=== PATIENT | male | born 1945 | race Caucasian/White ===

== ENCOUNTER → 2020-08-21 14:23 | Outpatient (BNVA) | payer MEDICARE, SELFPAY | PROVIDERS: PCP Internal Medicine; Visit Provider Surgery | DX: K64.5 Perianal venous thrombosis (principal); E78.5 Hyperlipidemia, unspecified; F17.290 Nicotine dependence, other tobacco product, uncomplicated; Z86.73 Personal history of transient ischemic attack (TIA), and cerebral infarction without residual deficits | CPT/HCPCS: 99202 ==

== ENCOUNTER → 2020-08-29 09:18 | Outpatient (BNVA) | payer MEDICARE, SELFPAY | PROVIDERS: PCP Internal Medicine; Referring Provider Internal Medicine; Visit Provider Surgery | DX: K64.5 Perianal venous thrombosis (principal) | CPT/HCPCS: 99212 ==

== ENCOUNTER → 2021-03-26 09:05 | Outpatient (REF) | payer MEDICARE, SELFPAY ==
--- NOTE | 2021-03-26 09:15 | ECG_ITS ---
Test Reason : MENISCUS TEAR Blood Pressure : / mmHG Vent. Rate : 071 BPM Atrial Rate : 071 BPM P-R Int : 138 ms QRS Dur : 090 ms QT Int : 374 ms P-R-T Axes : 033 018 023 degrees QTc Int : 406 ms Normal sinus rhythm Normal ECG When compared with ECG of 31-OCT-2007 13:04, No significant change was found Referred By: Ray Hardy Electronically Signed By:MELQUIADES CARRINGTON MD
[2021-03-26 09:39] LABS: MANUAL DIFF FLAG NO
[2021-03-26 09:56] LABS: Basophils Absolute Auto 0.1 X10*3/uL (0.0-0.2); Basophils Percent Auto 0.8 % (0-2); Eosinophils Absolute Auto 0.3 X10*3/uL (0.0-0.4); Eosinophils Percent Auto 3.5 % (0-4); Hematocrit 39.1 % (42-52); Hemoglobin 13.4 g/dl (14.0-18.0); Imm Gran Abs Auto 0.06 X10*3/uL (0.00-0.03); Imm Gran Pct Auto 0.8 % (0.0-0.4); Lymphocytes Absolute Auto 2.3 X10*3/uL (1.2-4.9); Lymphocytes Percent Auto 29.3 % (20-40); Mean Corpuscular HGB Conc 34.3 g/dl (31.0-36.0); Mean Corpuscular Hemoglobin 32.4 pg (27.0-33.0); Mean Corpuscular Volume 94.7 fL (80-98); Mean Platelet Volume 10.6 fL (9.4-12.4); Monocytes Absolute Auto 0.6 X10*3/uL (0.1-1.2); Neutrophils Absolute Auto 4.5 X10*3/uL (2.0-8.3); Neutrophils Percent Auto 57.6 % (45-73); Platelet Count 202 X10*3/uL (160-400); Red Blood Count 4.13 X10*6/uL (4.60-5.80); Red Cell Distribution Width 12.6 % (11.0-16.0); White Blood Count 7.8 X10*3/uL (4.8-10.8)
[2021-03-26 10:25] LABS: Alanine Aminotransferase 21 U/L (0-40); Albumin Level 4.3 g/dL (3.5-5.0); Alkaline Phosphatase 75 U/L (39-117); Anion Gap 12 (12-20); Aspartate Amino Transferase 21 U/L (5-37); Bilirubin Total 0.6 mg/dL (0.0-1.0); Blood Urea Nitrogen 16 mg/dL (9-16); Calcium 9.5 mg/dL (8.4-10.2); Carbon Dioxide 26 mmol/L (22-29); Chloride 106 mmol/L (96-108); Estimated Glomerular Filt Rate > 60; Glucose Random 94 mg/dL (60-115); Potassium 4.4 mmol/L (3.3-5.1); Sodium 140 mmol/L (135-145); Total Protein 6.7 g/dL (6.5-8.0)
== END ==
LOC: HO.CARD 09:05
PROVIDERS: PCP Internal Medicine; Visit Provider Internal Medicine
DX: S83.242A Other tear of medial meniscus, current injury, left knee, initial encounter (principal); E78.00 Pure hypercholesterolemia, unspecified; G40.909 Epilepsy, unspecified, not intractable, without status epilepticus
CPT/HCPCS: 36415; 80053; 85025; 93005

== ENCOUNTER 2022-06-02 09:23 | Day surgery (SDC) | payer MEDICARE, SELFPAY ==
--- NOTE | 2022-05-29 12:14 | HO.ANESPROP2 ---
Documented by User: Nena Borrego NP 05/29/22 12:14 HPI - Anesthesia Eval Consult details Narrative: 77yo M for Upper Endoscopy PMFSH Active Problems Active Problems: All Active Problems (Updated 08/21/20 @ 14:53 by Immanuel Mills MD) Thrombosed hemorrhoids (Acute) Hyperlipidemia (Acute) History of TIA (transient ischemic attack) (Acute) Past Medical History Medical History Acute arthritis History of TIA (transient ischemic attack) Hyperlipidemia Insomnia Prostate CA Seizure disorder Thrombosed hemorrhoids Family History Family History Mother History of breast cancer Father History of brain cancer Surgical History Surgical History H/O eye surgery History of hernia repair History of total left knee replacement Social History Social History Alcohol intake: current Alcohol type: wine Patient Tobacco Use Status: Current someday Tobacco user Tobacco use type: Cigar Use of substances other than those prescribed or required for medical reasons: No Are you DNR?: No Advance Directives: No Advance Directives Information Provided: Yes Meds Allergies Allergy/AdvReac Type Severity Reaction Status Date / Time No Known Allergies Allergy Verified 08/21/20 14:32 [No Known Allergies*] Home Medications Medication Instructions Recorded Confirmed Last Taken Type atorvastatin 20 mg tablet 20 mg PO DAILY 08/21/20 Unknown History levetiracetam 250 mg tablet 250 mg PO BID 08/21/20 Unknown History mirtazapine 7.5 mg tablet 7.5 mg PO BEDTIME 08/21/20 Unknown History temazepam 30 mg capsule 30 mg PO BEDTIME PRN 08/21/20 Unknown History tramadol 50 mg tablet 50 mg PO Q4-6H PRN 08/21/20 Unknown History Exam Exam Date and Time: May 29, 2022 1214 Assessment and Plan Assessment Anesthesia Assessment: Chart Reviewed Documented by User: Enid Clarke MD 06/02/22 10:39 PMFSH Active Problems Active Problems: All Active Problems (Updated 08/21/20 @ 14:53 by Immanuel Mills MD) Thrombosed hemorrhoids (Acute) Hyperlipidemia (Acute) History of TIA (transient ischemic attack) (Acute)- balance problems and some facial numbness Abnormality on CTscan. For EGD Past Medical History Medical History Acute arthritis History of TIA (transient ischemic attack) Hyperlipidemia Insomnia Prostate CA Seizure disorder Thrombosed hemorrhoids Family History Family History Mother History of breast cancer Father History of brain cancer Family history of problems with anesthesia: No Surgical History Surgical History H/O eye surgery History of hernia repair History of total left knee replacement History of Problems with Anesthesia: No Social History Social History Alcohol intake: current Alcohol type: wine Patient Tobacco Use Status: Current someday Tobacco user Tobacco use type: Cigar Use of substances other than those prescribed or required for medical reasons: No Are you DNR?: No Advance Directives: No Advance Directives Information Provided: Yes Meds Allergies Allergy/AdvReac Type Severity Reaction Status Date / Time No Known Allergies Allergy Verified 08/21/20 14:32 [No Known Allergies*] Home Medications Medication Instructions Recorded Confirmed Last Taken Type atorvastatin 20 mg tablet 20 mg PO DAILY 08/21/20 Unknown History levetiracetam 250 mg tablet 250 mg PO BID 08/21/20 Unknown History mirtazapine 7.5 mg tablet 7.5 mg PO BEDTIME 08/21/20 Unknown History temazepam 30 mg capsule 30 mg PO BEDTIME PRN 08/21/20 Unknown History tramadol 50 mg tablet 50 mg PO Q4-6H PRN 08/21/20 Unknown History Exam Height,Weight and Vital Signs: Height 5 ft 5 in Weight 68.039 kg Vital Signs Temp Pulse Resp BP Pulse Ox O2 Del Method 06/02/22 10:04 98.2 F 75 16 126/79 96 Room Air Airway Mallampati Class: II TM Dist: >3cm Neck ROM: Full Loose/Missing/Broken Teeth: Yes (Many missing bottom. No loose) Heart: RRR ?murmur Lungs: CTAB Assessment and Plan Assessment Anesthesia Assessment: Anesthesia Plan Discussed Final Anesthetic Review Family History of Problems with Anesthesia: No History of Problems with Anesthesia: No NPO: Yes ASA Class: III Final Preanesthetic Review: No Changes in Pt Med Stat, Meds/Allgs Chart Reviewed, Consent Obtained/Reviewed and Anes Risks/Benef Reviewed Patient Risk: Intermediate Procedure Risk: Low Assessment/Block/Sedation in SS: Assess/Block/Sedation-SS Anesthetic Plan Anesthetic Plan: MAC: Disposition: Standard PACU
[2022-06-02 09:35] VITALS: BMI 25.0
[2022-06-02 10:04] VITALS: BP 126/79; PULSE 75; RESP 16; TEMP 36.8; O2SAT 96
[2022-06-02] MEDS: Lactated Ringers 1,000 ML 100 ML IVCONT (10:15)
--- NOTE | 2022-06-02 11:00 | MHC.SHP ---
Pre-Procedural Eval Section A Date of Service: 06/02/22 The patient is an INPATIENT: No Changes since office visit: No Cold of Flu in the past 2 weeks, No New Medical Problems, No Changes in Medication and No Patient answered all questions The History & Physical has been completed within 30 days and I have reviewed it.: Yes Section B Chief Complaint: Abnormal findings on diagnostic imaging of other p Allergies: Allergies Allergy/AdvReac Type Severity Reaction Status Date / Time No Known Allergies Allergy Verified 08/21/20 14:32 [No Known Allergies*] Plan I have reviewed the history and physical and performed a pertinent physical examination on my patient. No changes have occurred unless specified.
[2022-06-02 11:24] VITALS: BP 115/74; PULSE 88; RESP 16; TEMP 36.4; O2SAT 98
--- NOTE | 2022-06-02 11:28 | PM.OP ---
Brief Operative Note Date of Service: 06/02/22 Pre-op diagnosis: abnl ct duodenum Post-op diagnosis: same Procedure: egd Surgeon: eDnis Giles Anesthesia: MAC Was an Credit Investigator used for this Procedure?: No Estimated blood loss (mL): 3 Pathology: other Condition: stable Disposition: PACU
[2022-06-02 11:39] VITALS: BP 113/77; PULSE 64; RESP 16; O2SAT 98
[2022-06-02 11:54] VITALS: PULSE 66; RESP 15; O2SAT 98
[2022-06-02 12:09] VITALS: BP 112/78; PULSE 61; RESP 16; TEMP 36.4; O2SAT 100
--- NOTE | 2022-06-02 21:38 | OP_ITS ---
SURGEON: Denis Giles MD INDICATIONS: Abnormal CT scan of the duodenum. PREOPERATIVE DIAGNOSIS: POSTOPERATIVE DIAGNOSIS: PROCEDURE PERFORMED: Upper endoscopy with biopsy. 06/02/22 ESTIMATED BLOOD LOSS: COMPLICATIONS: ANESTHESIA: Monitored anesthesia care. ASSISTANTS: SPECIMENS: PROCEDURE DESCRIPTION: History and Physical performed. The risks and benefits of the procedure were explained to the patient and informed consent was obtained. The patient was placed in the left lateral decubitus position. The Olympus video gastroscope was introduced into the esophagus, stomach, and duodenum. Examination was performed. The scope was removed. He tolerated the procedure well and was transferred to recovery area in stable condition. FINDINGS: Esophagus: There was a very mild distal esophagitis. Biopsies were obtained from the EG junction. Stomach: Showed no evidence of masses, ulcers, or polyps. Antral biopsies were obtained to evaluate for H. pylori. Duodenum: There was duodenitis involving the bulb. There was a duodenal diverticulum consistent with the findings on the CT scan involving the second portion. The major papilla was identified along the distal wall of the diverticulum. There was undigested food material in the diverticulum, which likely explains the findings on the CT scan. This was irrigated and there were no mucosal abnormalities identified. There was no evidence of mass, ulceration, or tumor. The mucosa appeared normal. The 3rd and 4th portion of the duodenum were examined and appeared normal. IMPRESSION: 1. Duodenitis. 2. Esophagitis. 3. 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 RECOMMENDATIONS: 1. Follow up the biopsy results. 2. Omeprazole 20 mg daily for 8 weeks. 3. Follow up p.r.n. MD SUDARSHAN Shanks/JOSHL / [id number] MTDD
== END 2022-06-02 12:56 | disposition home or self-care (01) ==
PROVIDERS: Visit Provider Internal Medicine Gastroenterology
PROC: 0DJ08ZZ Inspection of Upper Intestinal Tract, Via Natural or Artificial Opening Endoscopic (ICD-10-PCS; CPT 43235; principal; 2022-06-02 10:00)
DX: K20.80 Other esophagitis without bleeding (principal); K29.80 Duodenitis without bleeding; K31.7 Polyp of stomach and duodenum; C61 Malignant neoplasm of prostate; G40.909 Epilepsy, unspecified, not intractable, without status epilepticus; E78.00 Pure hypercholesterolemia, unspecified; M19.90 Unspecified osteoarthritis, unspecified site; Z79.899 Other long term (current) drug therapy; Z87.891 Personal history of nicotine dependence
CPT/HCPCS: 43239; 88305; 88342

== ENCOUNTER 2025-06-01 11:01 | Outpatient (AMB) | payer MEDICARE, SELFPAY ==
--- OUTSIDE RECORDS SUMMARY | 2024-04-11 05:15 | XMS_ITS ---
Author Organization [facility] Address [address] [place] [address] Care Team Providers Care Assurance Auditor Name Role Phone Kasia Hess Primary Care Provider Unava ilable Julia Cope [phone] Problems No Known Problems Encounters Encounter Location Date Provider Diagnosis [address] [address] 04/11/2024 Julia Cope Plan Of Treatment Next Appt Details Provider Name:Julia villasenor, 06/12/2025 09:30:00 AM, [address] [place] [address], [phone], Progress Notes * Lance GIBSONoreDOB: [birth year] (80 yo M)Acc No.[id number]:04/11/2024 Progress Note Patient: Clotilde DELGADO Bhanu Provider: Dania Cope DPM :1945 A ge:79 Y S ex:Male Date:04/11/2024 Address:[address] [place] [address] Pcp:Kasia Hess Subjective: * Chief Complaints: * * Medical History: Objective: * Vitals: Assessment: Plan: * Treatment: * Images: * The named appointment provid er may or may not be the originator of this progress note, and it is not deemed complete until electronically signed by the appointment provider. Sign off status: Pending * Provider: Dania Cope DPM Date: 0 04/11/2024 Generated for Donald Chan/Melania on: 0 06/01/2025 12:02 PM EDT
--- OUTSIDE RECORDS SUMMARY | 2025-03-21 05:30 | XMS_ITS ---
Author Organization [facility] Address [address] [place] [address] Care Team Providers Care Field Geologist Name Role Phone Kasia Hess Primary Care Provider Unava ilable Julia Cope [phone] Problems No Known Problems Encounters Encounter Location Date Provider Diagnosis [address] [address] 03/21/2025 Julia Cope Plan Of Treatment Next Appt Details Provider Name:Julia villasenor, 06/12/2025 09:30:00 AM, [address] [place] [address], [phone], Progress Notes * Lance GIBSONoreDOB: [birth year] (80 yo M)Acc No.[id number]:03/21/2025 Progress Note Patient: Clotilde DELGDAO Bhanu Provider: Dania Cope DPM :1945 A ge:80 Y S ex:Male Date:03/21/2025 Address:[address] [place] [address] Pcp:Kasia Hess Subjective: * Chief Complaints: * [...] 03/21/2025 Generated for Donald Chan/Melania on: 0 06/01/2025 12:02 PM EDT
[2025-06-01 11:12] VITALS: PULSE 72; RESP 16; O2SAT 97; BMI 25.0
--- NOTE | 2025-06-01 11:12 | A.OFFVIS_ITS ---
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 He had an episode in 04/2025 where his thought his speech was slurred and he was off balance. He went to bed and speech was back to normal the next morning. He did not go to the hospital. His balance has been off at times since then, but no falls. His also thought one of eyelids may be drooping, but he did not notice this. No change in vision. No double or blurred vision. No significant dizziness. Sleep was okay with temazepam. He was going on a cruise for 7-weeks with his next month. He was staying active working few hours a day at [employer] and exercising. [facility] Medical History (Updated 06/01/25 @ 11:35 by Lashon Sheridan CNP) Multifactorial gait disorder Gait disorder Peripheral neuropathy Arthritis Prostate CA Insomnia Acute arthritis Seizure disorder Thrombosed hemorrhoids Hyperlipidemia History of TIA (transient ischemic attack) Surgical History (Updated 04/27/25 @ 09:53 by Niharika Guerrero CMA) S/P knee replacement H/O eye surgery History of total left knee replacement History of hernia repair Family History Mother History of breast cancer Father History of brain cancer Social History Alcohol intake: current Alcohol type: wine Patient Tobacco Use Status: Current someday Tobacco user Tobacco use type: Cigar Review of Systems Const Denies chills, Denies daytime sleepiness, Reports difficulty sleeping, Denies fatigue, Denies fever(s), Denies frequent falls, Denies headache(s), Denies increased appetite, Denies poor appetite, Denies snoring, Denies weakness, Denies weight gain and Denies weight loss Eyes Denies loss of vision ENT Denies vertigo, Denies dizziness and Denies headache(s) Card Denies chest pain at rest, Denies chest pain with activity, Denies syncope, Denies leg edema and Denies palpitations Resp Denies snoring GI Denies constipation, Denies heartburn, Denies diarrhea and Denies nausea Denies urinary frequency, Denies urinary incontinence and Denies urinary urgency Musc Reports abnormal gait (balance difficulty), Denies numbness and Denies tingling Skin/Breast Denies dry skin and Denies rash Neuro Reports abnormal gait (balance difficulty), Denies vertigo, Denies dizziness, Denies syncope, Denies frequent falls, Denies headache(s), Denies lack of coordination, Denies loss of vision, Denies memory loss, Denies numbness, Denies restless legs, Denies seizure-like activity, Denies tingling, Denies paresthesias, Denies tremor(s) and Denies weakness Psych Denies anxiety, Denies depression, Denies auditory hallucinations, Denies memory loss, Denies visual hallucinations and Denies suicidal ideation Endo Denies fatigue and Denies palpitations Physical Exam Vital Signs: Last Vital Signs Pulse 72 06/01/25 11:12 Resp 16 06/01/25 11:12 Pulse Ox 97 06/01/25 11:12 BMI result Body Mass Index 25.0 Const Other: General Appearance:? normal, in no acute distress. Skin:? no rashes, no significant birthmarks. Heart:? S1, S2 normal, no murmurs. Lungs:? clear anteriorly and posteriorly. Extremities:? no edema. Psych:? alert, oriented, cognitive function intact, cooperative with exam. Neuro Other: Mental Status:?Normal attention, orientation, memory and affect.? Cranial Nerves:?Pupils are equal, round and reactive to light. External occular muscles are intact. Right eye is deviated to the right but he could move it all directions. Visual crowley are full. Face is symmetrical. Facial sensations are normal. Tongue is midline. Palate elevates symmetrically. Shoulder shrugging is normal. Hearing to bedside conversation is decreased. Sensory Exam:?....? Coordination:?No ataxia,?no titubation.? Gait Exam: Within normal limits. Cerebellar Signs:?[id number] is okay. Extrapyramidal System:?No tremor, rigidity with normal facial expressions.? Pronator Drift:?Not present.? Involuntary Movements:?No tremors seen.? Speech:?Normal.? Results Reviewed Results Reviewed: MRI brain WO at [facility] [place] in 2019: mod ventriculomegaly NCV/EMG LE 03/29/19 THIS IS AN UNREMARKABLE STUDY. Amb EEG at [facility] in 2018: left temp sharps MRI brain w/o cont at [facility] [place] in 2009: mild MVD and mild ventriculomegaly NICS at [facility] [place] in 2009: WNL. Assessment & Plan Assessment & Plan (1) Complex partial seizure disorder: Code(s): G40.209 - Localization-related (focal) (partial) symptomatic epilepsy and epileptic syndromes with complex partial seizures, not intractable, without status epilepticus Category: Medical Plan: Continue levetiracetam 500mg 1 tablet twice a day. (2) Insomnia: Code(s): G47.00 - Insomnia, unspecified Category: Medical Qualifiers: Insomnia type: unspecified Qualified Code(s): G47.00 - Insomnia, unspecified Plan: He was no longer taking mirtazapine and medication was stopped. (3) Stroke: Code(s): I63.9 - Cerebral infarction, unspecified Category: Medical Qualifiers: CVA mechanism: unspecified Qualified Code(s): I63.9 - Cerebral infarction, unspecified Plan: He had episode last month of slurred speech and balance difficulty. He went to sleep and speech was better the next day, but balance could be off at times. He did not go to ER. MRI brain ordered r/o stroke. Orders: Orders MR head/brain wo con Today I63.9 - Cerebral infarction, unspecified Medications: Refilled levetiracetam 500 mg PO BID 180 tabs 1RF 90 days Coding Level of Care Code Est Pt Level 4 (22745) Diagnoses Complex partial seizure disorder G40.209 Insomnia, unspecified type G47.00 Insomnia type: unspecified Cerebrovascular accident (CVA), unspecified mechanism I63.9 CVA mechanism: unspecified
--- OUTSIDE RECORDS SUMMARY | 2025-06-01 12:03 | XMS_ITS | Patient Health Record ---
Author Organization [facility] Address [address] [place] [address] Care Team Providers Care Hauling Contractor Name Role Phone Kasia Hess Primary Care Provider Julia Rizzo Unavailable [phone] Allergies No Known Allergies Reason For Referral No Information Medications Medication SIG (Take, Route, Frequency, Duration) Notes Start Date End Date Status Tamsulosin HCl 0.4 MG 1 capsule Orally O nce a day; Duration: 30 day(s) Active Atorvastatin Calcium 20 MG 1 tablet Oral ly Once a day Active Multivitamin Active OXcarbazepine 300 MG Orally Active Temazepam 30 MG 1 capsule at bedtime as needed Orally Once a day Active Immunizations Vaccine Route Administration Date Status Comme nts COVID-19 Pfizer BioNTech Vaccine Unknown 07/14/2021 Administered 1st:11/01/2020 2nd dose: 11/22/2020 Social History Tobacco Use: Social History Observation Description Date Details (start date - stop date) Current Smoker 11/26/1994 - NA Tobacco use other than smoking: Question Answer Notes Are you an other tobacco user? Yes C igars a couple a week Tobacco Control (Standard) Question Answer Notes Tobacco use: Current smoker When did you start smoking? 11/26/1994 How often do you smoke cigarettes? Every day How many cigarettes a day do you smoke? 6-10 How soon after you wake up d o you smoke your first cigarette? 6-30 minutes Are you interested in quitting? Thinking about q uitting Additional Findings: Tobacco user Modera te cigarette smoker (10-19 cigs/day) AUDIT-C (Standard) Question Answer Notes Did you have a drink containing alcohol in the p ast year? No Points 0 Interpretation Negative Problems No Known Problems Vital Signs Blood pressure diastolic 70 mm Hg 12/20/2024 Height 5 ft 3in in 12/20/2024 Blood pressure systolic 130 mm Hg 12/20/2024 Weight 155 lbs 12/20/2024 BMI 27.45 kg/m2 12/20/2024 Encounters Encounter Location Date Provider Diagnosis [address] [address] 06/14/2024 Julia Perica Tinea unguium B35.1 ; Pain in right toe(s) M79.674 and Pain in left toe(s) M79.[address] [address] 09/13/2024 Julia Perica Tinea unguium B35.1 ; Pain in right toe(s) M79.674 and Pain in left toe(s) M79.[address] [address] 12/20/2024 Julia Perica Tinea unguium B35.1 ; Pain in right toe(s) M79.674 and Pain in left toe(s) M79.[address] [address] 12/20/2024 Julia Perica [address] [address] 03/16/2025 Julia Perica Assessments Encounter Date Diagnosis (ICD Code) Assessment Notes Treatment Notes Treatment Clinical Notes Section Notes 06/14/2024 Tinea unguium (ICD-10 - B35.1) 09/13/2024 Tinea unguium (ICD-10 - B35.1) 12/20/2024 Tinea unguium (ICD-10 - B35.1) 06/14/2024 Pain in right toe(s) (ICD-10 - M79.674) 09/13/2024 Pain in right toe(s) (ICD-10 - M79.674) 12/20/2024 Pain in right toe(s) (ICD-10 - M79.674) 12/20/2024 Pain in left toe(s) (ICD-10 - M79.675) 09/13/2024 Pain in left toe(s) (ICD-10 - M79.675) 06/14/2024 Pain in left toe(s) (ICD-10 - M79.675) Plan Of Treatment Pending Test Test Name Order Date [id number] Plate 02/25/2016 [id number] Plate 04/07/2016 Next Appt Details Provider Name:Julia villasenor, 06/12/2025 09:30:00 AM, [address] [place], [address], Insurance Providers Payer Name Payer Address Payer Phone Subscriber Number Group Number Insured Name Patient Relationship to Insured Coverage Start Date Coverage End Date [employer] [address] [place] [address] [id number] Bhanu Gibson Self - patient is the insured Medical (General) History Medical History History ICD Code Cholesterol Measles Mumps Chicken pox Back,Hip,and Knee pain Prostate cancer Surgical History Surgery Date(Month/Year) knee surgery hernia knee surgery, left 2021 prostate cancer 2022
--- OUTSIDE RECORDS SUMMARY | 2025-06-01 12:03 | XMS_ITS | Patient Health Record ---
Author Organization [facility] Address [address] [place] [address] Care Team Providers Care Hotel Or Motel Manager Name Role Phone Hayley (RETIRED) Ray TREVINO Primary Care Provid er Unavailable Denis Giles Jr Unavailable Allergies No Known Allergies Reason For Referral No Information Medications Medication SIG (Take, Route, Frequency, Duration) Notes Start Date End Date Status levETIRAcetam 500 MG 1 tablet Orally bart ry 12 hrs for 30 day(s) Active Omeprazole 20 MG TAKE 1 CAPSULE BY MO UTH 30 MINUTES BEFORE MORNING MEAL ONCE A DAY 28 for 28 Active Atorvastatin Calcium 20 MG TAKE 1 TABLET BY MOUTH EVERY DAY Oral for 90 Active OXcarbazepine 300 MG TAKE 1 TABLET BY MO UTH TWICE A DAY Oral for 60 Active Temazepam 30 MG (Schedule IV Drug) T SARAH 1 CAPSULE BY MOUTH AT BEDTIME NEEDED Oral for 90 Active Tamsulosin HCl 0.4 MG 1 capsule Orally O nce a day for 30 day(s) Active Ofloxacin 0.3 % INSTILL 1 DROP INTO LEFT EYE 4 TIMES A DAY Ophthalmic for 18 Active Ibuprofen 200 MG 1 tablet with food o r milk as needed Orally Three times a day Active Immunizations Vaccine Route Administration Date Status Comme nts Influenza Unknown 08/27/2019 Administered Influenza Unknown 08/19/2021 Administered Social History Tobacco Use: Social History Observation Description Date Details (start date - stop date) Former Smoker NA - NA Tobacco Use/Smoking Question Answer Notes Patient is a former smoker When did you stop smoking? 40 years ago How long has it been since you last smoked? > 10 years Alcohol Screen Question Answer Notes Did you have a drink contain ing alcohol in the past year? Yes How often did you have a dri nk containing alcohol in the past year? 4 or more times a week (4 points) How many drinks did you have on a typical day when you were drinking in the past year? 1 or 2 drinks (0 point) How often did you have 6 or more drinks on one occasion in the past year? Never (0 point) Points 4 Interpretation Positive Section Notes: occasional cigar occasional cigar Problems Problem Type SNOMED Code ICD Code Onset Dates Problem Status W/U Status Risk Notes Problem 602838783 Colon cancer screening (Z12.11) Active confirmed Problem 724117075 [employer] (curre nt) use of non-steroidal anti-inflammatories (NSAID) (Z79.1) Active confirmed Problem 650277056 Abnormal CT scan , gastrointestinal tract (R93.3) Active confirmed Plan Of Treatment Future Test Test Name Order Date COLONOSCOPY 12/15/2019 UPPER GI ENDOSCOPY 05/27/2022 Insurance Providers Payer Name Payer Address Payer Phone Subscriber Number Group Number Insured Name Patient Relationship to Insured Coverage Start Date Coverage End Date [facility] [address] [place] [phone] [id number] KARINA ELDRIDGE Self - patient is the insured Medical (General) History Medical History History ICD Code arthritis elevated cholesterol Seizure disorder insomnia prostate cancer colonoscopy 02/14/20, normal, no further screening. Surgical History Surgery Date(Month/Year) knee surgery hernia surgery eye surgery age 5 Hospitalization History Reason Date(Month/Year)
== END 2025-06-01 11:40 | disposition home or self-care (01) ==
LOC: HO.HSM 11:02
PROVIDERS: Visit Provider Registered Nurse
DX: G40.209 Localization-related (focal) (partial) symptomatic epilepsy and epileptic syndromes with complex partial seizures, not intractable, without status epilepticus (principal); G47.00 Insomnia, unspecified; I63.9 Cerebral infarction, unspecified
CPT/HCPCS: 99214

== ENCOUNTER → 2025-06-01 11:01 | Outpatient (BNVA) | payer MEDICARE, SELFPAY | PROVIDERS: Visit Provider Registered Nurse | DX: G40.209 Localization-related (focal) (partial) symptomatic epilepsy and epileptic syndromes with complex partial seizures, not intractable, without status epilepticus (principal); G47.00 Insomnia, unspecified; I63.9 Cerebral infarction, unspecified | CPT/HCPCS: 99212 ==

== ENCOUNTER → 2025-06-17 09:10 | Outpatient (BNV) | payer MEDICARE, SELFPAY | PROVIDERS: Visit Provider Radiology Vascular & Interventional Radiology | DX: I63.9 Cerebral infarction, unspecified (principal) | CPT/HCPCS: 70551 ==

== ENCOUNTER 2025-06-17 09:12 | Outpatient (REF) | payer MEDICARE, SELFPAY ==
--- OUTSIDE RECORDS SUMMARY | 2025-03-21 05:30 | XMS_ITS ---
Author Organization [facility] Address [address] [place] [address] Care Team Providers Care Notching Machine Operator Name Role Phone Kasia Hess Primary Care Provider Unava ilable Julia Cope Unavailable [phone] Encounters Encounter Location Date Provider Diagnosis [address] [address] 03/21/2025 Julia Cope Plan Of Treatment Next Appt Details Provider Name:Julia villasenor, 10/09/2025 10:00:00 AM, [address] [place] [address], [phone], Progress Notes * Lance GIBSONoreDOB: [birth year] (80 yo M)Acc No.[id number]:03/21/2025 Progress Note Patient: Clotilde DELGADO Bhanu Provider: Dania Cope DPM :1945 A ge:80 Y S ex:Male Date:03/21/2025 Address:[address] [place] [address] Pcp:Kasia Hess Subjective: * Chief Complaints: * [...] 03/21/2025 Generated for Donald Chan/Melania on: 0 06/17/2025 09:15 AM EDT
--- OUTSIDE RECORDS SUMMARY | 2025-06-12 05:30 | XMS_ITS ---
Author Organization [facility] Address [address] [place] [address] Care Team Providers Care Snow Remover Name Role Phone Kasia Hess Primary Care Provider Julia Rizzo Unavailable [phone] Allergies No Known Allergies REASON FOR VISIT Painful nail(s) aggrevated by shoes causing difficulty standing/walking, Painful Toe(s) Medications Medication SIG (Take, Route, Frequency, Duration) Notes Start Date End Date Status Multivitamin Active Temazepam 30 MG 1 capsule at bedtime as needed Orally Once a day Active OXcarbazepine 300 MG Orally Active Atorvastatin Calcium 20 MG 1 tablet Oral ly Once a day Active Tamsulosin HCl 0.4 MG 1 capsule Orally O nce a day; Duration: 30 day(s) Active Social History Tobacco Use: Social History Observation Description Date Details (start date - stop date) Never Smoker NA - NA Tobacco use other than smoking: Question Answer Notes Are you an other tobacco user? Yes C igars a couple a week Tobacco Control (Standard) Question Answer Notes Tobacco use: Nonsmoker Additional Findings: Tobacco non-user Current no nsmoker AUDIT-C (Standard) Question Answer Notes Did you have a drink contain ing alcohol in the past year? Yes How often did you have a dri nk containing alcohol in the past year? Daily or almost daily (4 points) How many drinks did you have on a typical day when you were drinking in the past year? 1 or 2 drinks (0 point) How often did you have six o r more drinks on one occasion in the past year? Never (0 point) Points 4 Interpretation Positive Problems Problem Type SNOMED Code ICD Code Onset Dates Problem Status W/U Status Risk Notes Problem Acquired hammer toe of right foot (2350928624647 105) Other hammer toe(s) (acquired), right foot (M20.41) Active confirmed Vital Signs Blood pressure systolic 130 mm Hg 06/12/20 25 Blood pressure diastolic 70 mm Hg 025 Height 5 ft 3in in 06/12/2025 Weight 150 lbs 06/12/2025 BMI 26.57 kg/m2 06/12/2025 Encounters Encounter Location Date Provider Diagnosis [facility] [address] [place] [address] 06/12/2025 Julia [place] Tinea unguium B35.1 ; Other hammer toe(s) (acquired), right foot M20.41 ; Pain in right toe(s) M79.674 and Pain in left toe(s) M79.675 Assessments Encounter Date Diagnosis (ICD Code) Assessment Notes Treatment Notes Treatment Clinical Notes Section Notes 06/12/2025 Tinea unguium (ICD-10 - B35.1) 06/12/2025 Other hammer toe(s) (acquired), right foot (ICD-10 - M20.41) 06/12/2025 Pain in right toe(s) (ICD-10 - M79.674) 06/12/2025 Pain in left toe(s) (ICD-10 - M79.675) Plan Of Treatment Next Appt Details Follow Up: 3 Months, Reason: Provider Name:Julia villasenor, 10/09/2025 10:00:00 AM, [address] [place], [address], Procedure Notes * Category Sub-Category Detail Notes Debride Nail 6-10 Nail debridement Discussed use of oral Lamisil, pt defers due to liver risk and Pt wishes to continue with the present treatment plan, Due to the clinical pathology outlined in the exam findings, performance of this nail treatment is medically necessary as its management by an unskilled/untrained nonprofessional would put this patients foot and overall health at risk. Therefore, debridement to affected nail(s), as described in exam ( TA, T1, T2, T3, T4, T5, T6, T7, T8, T9), was performed exclusively by the physician of record to reduce/remove overall nail length, girth, thickness, subungual debris, and necrotic tissue, by manual and/or electrical means through the use of a nail nipper and/or dremel-type watch parts grinder, to a more viable healthy nail plate or bed tissue 6-10 nails in total. Silver nitrate was used for any petechial bleeding as necessary. Definitive antifungal treatment options, both pharmaceutical and surgical, have been reviewed and discussed with the patient. The patient solely prefers the use of intermittent/as needed professional debridement services for their nail condition and understands the need for additional periodic treatments to maintain effectiveness in symptomatic relief - [id number] Progress Notes * CHENTE LanceoreDOB: [birth year] (80 yo M)Acc No.[id number]:06/12/2025 Progress Note Patient: Clotilde DELGADO Bhanu Provider: Dania Cope DPM :1945 A ge:80 Y S ex:Male Date:06/12/2025 Address:[address] [place] [address] Pcp:Kasia Hess Subjective: * Chief Complaints: * P ainful nail(s) aggrevated by shoes causing difficulty standing/walkingPainful Toe(s) * HPI: P ainful Nails: Pt States Last PCP Visit: D ate: 0 03/14/2025 T oe pain: Nature: t enderness. Location: 2 nd toe, Right foot. Duration: , several months. Course: w orse. Aggravated by: a ny pressure, shoes. Treatments: r est/alter normal daily activity, change in shoes. * ROS: G eneral/Constitutional: Nausea d enies. V omiting d enies. H leodan Thirst d enies. L oss appetite d enies. C hills d enies. F atigue d enies.?Fever d enies. N ight Sweats d enies. U nexplained weight loss d enies. O phthalmologic: Blurred vision d enies. R ed eye d enies. ? H EENTM: Dentures d enies. D izziness d enies. G lasses/contacts a dmits. R etinopathy d enies. B lurred/double vision d enies. T MJ?denies. D ischarge/drainage d enies. I mplants d enies. H lucas of hearing admits. D ifficulty chewing/swallowing/speaking d enies. N ose bleeds d enies.?Sore mouth d enies. S wollen glands d enies. R espiratory: On Oxygen d enies. P neumonia/pleurisy d enies.?Bronchitis d enies. E mphysema d enies. C oughing d enies. C ough blood?denies. S hortness of breath d enies. W heezing d enies. C ardiovascular: Pacemaker d enies. M ANGLE FURNACEMAN d enies. W PW d enies. C HF d enies. H eart attack d enies. S eptal defect d enies. R apid beat d enies. C hest pain d enies. A trial Fib. d enies. M urmur/Palpitations d enies. G astrointestinal: Hemorrhoids d enies. S tomach/Abdominal pain d enies. D ark blood stool d enies. I rritable bowel d enies. C onstipation d enies. D iarrhea d enies. V omiting d enies. H ematology: Swelling d enies. B ruising d enies. B leeding problem d enies. G enitourinary: Blood urine d enies. F requent/Painfu/urination/bladder control d enies. K idney stones d enies. I nfection (UTI) d enies. N ephropathy d enies. M usculoskeletal: Hammertoes d enies. B unions d enies. S coliosis/kyphosis d enies. M uscle cramps / walking d enies. G eneralized aches and pains?denies. W eakness d enies. I nteg.: Ocasio d enies. S cars d enies. C orns/calluses?admits. I ngrown nails d enies. P ainful nails d enies. R ashes d enies. N eurologic: Difficulty sleeping a dmits. B ipolar d enies. B rain disorder d enies. B alance trouble d enies. C onfusion d enies. F ainting/blackouts d enies. H eadache d enies. T remors d enies. * Medical History: * Surgical History: k nee surgery hernia knee surgery, left rostate cancer 2022 * Hospitalization/Major Diagno stic Procedure: D enies Past Hospitalization * Family History: M other: , diagnosed with Other malignant neoplasm of unspecified site. F ather: , diagnosed with Other malignant neoplasm of unspecified site. S pouse: alive. * Social History: T obacco Use: T obacco use other than smoking A re you an other tobacco user? Y es Cigars a couple a week Tobacco Control (Standard) T obacco use: N onsmoker A dditional Findings: Tobacco non-user C urrent nonsmoker M iscellaneous: C affeine: yes, frequency:, 1-2 cups per day. Children: yes, 2. Exercise: yes, walking, work 42 hrs.. Marital status: . 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 D rug/Alcohol: A JAYE-C (Standard) D id you have a drink containing alcohol in the past year? Y es H ow often did you have a drink containing alcohol in the past year? D aily or almost daily (4 points) H ow many drinks did you have on a typical day when you were drinking in the past year? 1 or 2 drinks (0 point) H ow often did you have six or more drinks on one occasion in the past year? N ever (0 point) P oints 4 I nterpretation P ositive * Medications: T akingMultivitamin Tamsulosin HCl 0.4 MG Capsule 1 capsule Orally Once a day Atorvastatin Calcium 20 MG Tablet 1 tablet Orally Once a day OXcarbazepine 300 MG Tablet Orally Temazepam 30 MG Capsule 1 capsule at bedtime as needed Orally Once a day Medication List reviewed and reconciled with the patientTaking Multivitamin Taking Tamsulosin HCl 0.4 MG Capsule 1 capsule Orally Once a day Taking Atorvastatin Calcium 20 MG Tablet 1 tablet Orally Once a day Taking OXcarbazepine 300 MG Tablet Orally Taking Temazepam 30 MG Capsule 1 capsule at bedtime as needed Orally Once a day Medication List reviewed and reconciled with the patient * Allergies: N .K.D.A.yes[Allergies Verified] Objective: * Vitals: H t: 5 ft 3in, Wt: 150, BMI: 26.57, Shoe size: 8.5, BP: 130/70 mm Hg, Wt-k.04 kg. * Examination: N ails: NAILS are: E longated, overgrown, dystrophic, lytic, greater than 3mm thick, discolored and friable with crumbly malodorous subungual debris, with pain on palpation, TA, T1, T2, T3, T4, T5, T6, T7, T8, T9. O rthopedic: MUSCLE STRENGTH: 5 /5 all groups in a symmetrical fashion, B/L. DIGITAL DEFORMITIES: D igital contracture, PIPJ, 2-5 B/L, incompl-reducible with WB, or to push-up test, no over, nor underlapping. FOOTWEAR EVALUATION: s hoe gear properties exacerbate patients complaints in relation to their foot/toe deformity. G eneral Examination: GENERAL APPEARANCE: R duanes a pleasant, alert, well nourished, well-developed, well hydrated individual, who demonstrates proper attention to hygiene/body habitus, and is in no acute distress, Pt serves as own historian for office visit today. ORIENTED: p erson, place, and time. V ascular: DP PULSES (B): 3 /4, B/L. PT PULSES (B): 3 /4, B/L. CAPILLARY FILL TIME: i mmediate, all digits, B/L. TROPHIC CONDITION-TEXTURE/ELASTICITY/TURGOR/HAIR GROWTH (B):?normal, B/L. TEMPERTURE GRADIENT (C): n ormal, warm to cool, proximal to distal, B/L, B/L. N eurological: SENSORY: N eurological exam reveals intact sensorium, pain sensation normal, vibration sensation intact, pinprick sensation is normal in the lower extremities, Pt denies, anesthesia, burning, paresthesia, tingling, B/L. D ermatologic: SKIN FINDINGS: S kin exam reveals Keratotic lesion(s) located at, Lateral, IPJ, T5, Medial, PIPJ, T6. Assessment: * Assessment: 1. T inea unguium - B35.1 2 . O ther hammer toe(s) (acquired), right foot - M20.41 (Primary) S pecify :Acute Problem, Uncomplicated (3) 3 . P ain in right toe(s) - M79.674 4 . P ain in left toe(s) - M79.675 Plan: * Treatment: * Procedures: D katarzyna Nail 6-10: Nail debridement D iscussed use of oral Lamisil, pt defers due to liver risk and Pt wishes to continue with the present treatment plan, Due to the clinical pathology outlined in the exam findings, performance of this nail treatment is medically necessary as its management by an unskilled/untrained nonprofessional would put this patients foot and overall health at risk. Therefore, debridement to affected nail(s), as described in exam ( TA, T1, T2, T3, T4, T5, T6, T7, T8, T9), was performed exclusively by the physician of record to reduce/remove overall nail length, girth, thickness, subungual debris, and necrotic tissue, by manual and/or electrical means through the use of a nail nipper and/or dremel-type watch parts grinder, to a more viable healthy nail plate or bed tissue 6-10 nails in total. Silver nitrate was used for any petechial bleeding as necessary. Definitive antifungal treatment options, both pharmaceutical and surgical, have been reviewed and discussed with the patient. The patient solely prefers the use of intermittent/as needed professional debridement services for their nail condition and understands the need for additional periodic treatments to maintain effectiveness in symptomatic relief - [id number]. * Procedure Codes: 1 1721 DEBRIDE NAIL, 6 OR MORE * Preventive Medicine: Counseling: D iscussion: - 13: Office or other outpatient visit for the evaluation and management of an established patient, which required a medically appropriate history and/or examination and LOW level of DECISION MAKING for: 1 STABLE ACUTE UNCOMPLICATED PROBLEM, 2 OR MORE MINOR PROBLEMS, OR 1 STABLE CHRONIC PROBLEM, THAT POSE(S) A LOW RISK FOR MORBIDITY/MORTALITY. The visit on the day of the encounter encompassed interpreting the data and educating the patient as to the nature of their condition, treatment options available according to their individual PMH, meds, allergies, and overall health/living conditions, as well as any potential risks or complications that may occur from a failure to adhere to, and participate in, the recommended course of therapy. The discussion included a complete verbal, and/or written explanation of the examination results, any x-rays taken, the proposed diagnosis, and outline of the treatment plan. A schedule for future care needs was also explained. The patient verbalized an understanding of the instructions at this time and agreed to be an active participant in their treatment. If the patient should think of any questions or concerns after the visit, I have encouraged the patient to call the office. D igital Surgery: D igital surgery was discussed with the patient, including the risks of surgery(below), vs not having surgery (persistent pain, deformity, risk for skin ulceration/infection, loss of toe), the potential surg complications, the anesthesia, and the usual post-op course. No guarentees were given. We discussed the potential procedure complications including, but not limited to: pain, swelling, bleeding, scarring, numbness, infection, delayed/non healing, floppy/unstable/shorthened toe, recurrence, failure of the procedure, overcorrection leading to plantarflexed/downward positioned toe, recurrence, need for further surgery, as well as the possibility for loss of the toe itself. We discussed the use of local anesthesia, and the usual post-op course for healing. No guarentees were given. The patient verbally indicated a full understanding of the above conversation, and any other of their questions were answered to their satisfaction. Alternatives to the procedure were also discussed, including conservative care. I also discussed the usual post-operative course and gave no guarantees regarding outcome. D igital Treatment: H T- I explained to the patient the possible etiologies of Hammertoes, including genetics/foot type/shoegear/activity level/exercise routine and the risks/benefits of all the different treatment options for their pain including: No treatment at all, Rest, Ice, New/supportive/wider/deeper Shoe gear, Digital Padding/Strapping/Taping/Bracing/Gel protective sleeves, Foot/Ankle AFO Bracing, Stretching exercises, Deep Tissue Massage, Arch support/shoe inserts with splay metatarsal padding, and Custom orthoses. I insisted that any digital devices be removed daily and not worn overnight for safety. The patient is to carefully examine the toes daily for any skin irritation while using any splinting or padding device. The advantages and disadvantages of each option were discussed and the patients questions re: shoe gear, padding, custom vs prefabricated inserts, activity level, and consistency in home treatment regimens for optimal success were answered to their verbally confirmed satisfaction. S hoe Gear Counseling: T he patient and I reviewed the types of shoes they should be wearing. My recommendation included obtaining a well-fitted shoe with a good supportive, non-foldable nor twistable sole, plenty of toe/room for the forefoot, and proper arch support. Based on todays examination, I recommended the patient look for new shoes, by having their feet professionally measured. We discussed that generally the best time of the day for a shoe fitting is the afternoon. Different shoes types and brands to best match the patients occupation and vocation were discussed. Specific brand selection will be up to the patient, their individual foot condition/deformities, and fit. The patient and I reviewed the standard new shoe break in period by wearing them for a few hours a day while checking for redness or sores as wear time is increased. The patient verbally confirmed to understanding the information discussed. Screening/Special Tests: F all Risk Screening: N o falls in the past year F ALLS: Screening for Future Fall Risk Have you had any falls with injury in the past year? N o * Follow Up: 3 Months * Images: * Sign off status: Completed true * Provider: Dania Cope DPM Date: 0 06/12/2025 Generated for Donald taylor/Mikayla/Melania on: 0 06/17/2025 09:15 AM EDT History and Physical Notes * HPI (History of Present Illness) Category Sub-Category Detail Notes Category Not es Toe pain Nature: tenderness Location: 2nd toe, Right foot Duration: , several months Course: worse Aggravated by: any pressure, shoes Treatments: rest/alter normal da bessie activity, change in shoes Painful Nails Pt States Last PCP Visit: Date:: 03/14/2025 Examination Category Sub-Category Detail Notes Category Not es Neurological SENSORY: Neurological exa m reveals intact sensorium, pain sensation normal, vibration sensation intact, pinprick sensation is normal in the lower extremities, Pt denies, anesthesia, burning, paresthesia, tingling, B/L Dermatologic SKIN FINDINGS: Skin exam reveal s Keratotic lesion(s) located at, Lateral, IPJ, T5, Medial, PIPJ, T6 Orthopedic FOOTWEAR EVALUATION: shoe gear p roperties exacerbate patients complaints in relation to their foot/toe deformity DIGITAL DEFORMITIES: Digital contracture , PIPJ, 2-5 B/L, incompl-reducible with WB, or to push-up test, no over, nor underlapping MUSCLE STRENGTH: 5/5 all groups in a symmetrical fashion, B/L General Examination GENERAL APPEARANCE: Reveals a pleasant, alert, well nourished, well-developed, well hydrated individual, who demonstrates proper attention to hygiene/body habitus, and is in no acute distress, Pt serves as own historian for office visit today ORIENTED: person, place, and t radha Vascular DP PULSES (B): 3/4, B/L PT PULSES (B): 3/4, B/L CAPILLARY FILL TIME: immediate, all digi ts, B/L TEMPERTURE GRADIENT (C): normal, warm to cool, proximal to distal, B/L, B/L TROPHIC CONDITION-TEXTURE/ELASTICITY/TURGOR/HAIR GROWTH (B): normal, B/L Nails NAILS are: Elongated, overg rown, dystrophic, lytic, greater than 3mm thick, discolored and friable with crumbly malodorous subungual debris, with pain on palpation, TA, T1, T2, T3, T4, T5, T6, T7, T8, T9
--- NOTE | ~2025-06-17 | MR_ITS ---
CLINICAL HISTORY: I63.9 - Cerebral infarction, unspecified --- Additional Notes or Special Instructions: r o stroke MR Brain without gadolinium Comparison: None provided Findings: No restricted diffusion. No intra-axial mass or hemorrhage. No midline shift. No hydrocephalus. Vascular flow voids are intact. Disproportionate prominence of the ventricles when compared to the subarachnoid sulcal spaces. Mild scattered T2 signal prolongation in the periventricular white matter. Orbital contents are unremarkable. The sinuses and mastoid air cells are clear. No focal bone lesion. IMPRESSION: Disproportionately prominent ventricles. Findings suggest normal pressure hydrocephalus. No acute ischemia. This document has been electronically signed by: Wiley Mccracken MD on 06/18/2025 10:54:55
--- OUTSIDE RECORDS SUMMARY | 2025-06-17 09:16 | XMS_ITS | Patient Health Record ---
Author Organization [facility] Address [address] [place] [address] Care Team Providers Care Sagger Filler Name Role Phone Hayley (RETIRED) Ray TREVINO Primary Care Provid er Unavailable Denis Giles Jr Unavailable [phone] Allergies No Known Allergies Reason For Referral [...] Problem Status W/U Status Risk Notes Problem 890260383 Colon cancer screening (Z12.11) Active confirmed Problem 188376785 [facility] (curre nt) use of non-steroidal anti-inflammatories (NSAID) (Z79.1) Active confirmed Problem 647408924 Abnormal CT scan , gastrointestinal tract (R93.3) Active confirmed Plan Of Treatment Future Test Test Name Order Date COLONOSCOPY 12/15/2019 UPPER GI ENDOSCOPY 05/27/2022 Insurance Providers Payer Name Payer Address Payer Phone Subscriber Number Group Number Insured Name Patient Relationship to Insured Coverage Start Date Coverage End Date [facility] [address] [place] [phone] [id number] KARINA ELDRIDGE Self - patient is the insured Medical (General) History Medical History History ICD Code arthritis elevated cholesterol Seizure disorder insomnia prostate cancer colonoscopy 02/14/20, normal, no further screening. Surgical History Surgery Date(Month/Year) knee surgery hernia surgery eye surgery age 5 Hospitalization History Reason Date(Month/Year)
--- OUTSIDE RECORDS SUMMARY | 2025-06-17 09:16 | XMS_ITS | Patient Health Record ---
Author Organization [facility] Address [address] [place] [address] Care Team Providers Care Systems Engineer Name Role Phone Kasia Hess Primary Care Provider Julia Rizzo Unavailable [phone] Allergies No Known Allergies Reason For Referral [...] nce a day; Duration: 30 day(s) Active Immunizations Vaccine Route Administration Date Status [...] Problem Acquired hammer toe of right foot (5415792669959 105) Other hammer toe(s) (acquired), right foot (M20.41) Active confirmed Vital Signs Blood pressure diastolic 70 mm Hg 06/12/2025 Height 5 ft 3in in 06/12/2025 Blood pressure systolic 130 mm Hg 06/12/2025 Weight 150 lbs 06/12/2025 BMI 26.57 kg/m2 06/12/2025 Encounters Encounter Location Date Provider Diagnosis [address] [address] 09/13/2024 Julia Perica Tinea unguium B35.1 ; Pain in right toe(s) M79.674 and Pain in left toe(s) M79.[address] [address] 12/20/2024 Julia Perica Tinea unguium B35.1 ; Pain in right toe(s) M79.674 and Pain in left toe(s) M79.[address] [address] 06/12/2025 Julia Perica Tinea unguium B35.1 ; Other hammer toe(s) (acquired), right foot M20.41 ; Pain in right toe(s) M79.674 and Pain in left toe(s) M79.[address] [address] 12/20/2024 Julia Perica [address] [address] 03/16/2025 Julia Perica Assessments Encounter Date Diagnosis (ICD Code) Assessment Notes Treatment Notes Treatment Clinical Notes Section Notes 09/13/2024 Tinea unguium (ICD-10 - B35.1) 12/20/2024 Tinea unguium (ICD-10 - B35.1) 06/12/2025 Tinea unguium (ICD-10 - B35.1) 06/12/2025 Other hammer toe(s) (acquired), right foot (ICD-10 - M20.41) 12/20/2024 Pain in right toe(s) (ICD-10 - M79.674) 06/12/2025 Pain in right toe(s) (ICD-10 - M79.674) 09/13/2024 Pain in right toe(s) (ICD-10 - M79.674) 12/20/2024 Pain in left toe(s) (ICD-10 - M79.675) 09/13/2024 Pain in left toe(s) (ICD-10 - M79.675) 06/12/2025 Pain in left toe(s) (ICD-10 - M79.675) Plan Of Treatment Pending Test Test Name Order Date [id number] Plate 02/25/2016 [id number] Plate 04/07/2016 Next Appt Details Provider Name:Julia villasenor, 10/09/2025 10:00:00 AM, [address] [place], [address], Insurance Providers Payer Name Payer Address Payer Phone Subscriber Number Group Number Insured Name Patient Relationship to Insured Coverage Start Date Coverage End Date [employer] [address] [place] [address] [id number] Bhanu Gibson Self - patient is the insured Medical (General) History Medical History History ICD Code Cholesterol Measles Mumps Chicken pox Back,Hip,and Knee pain Prostate cancer Surgical History Surgery Date(Month/Year) knee surgery hernia knee surgery, left 2021 prostate cancer 2022
== END 2025-06-17 09:13 | disposition home or self-care (01) ==
LOC: HO.MRI 09:12
PROVIDERS: Visit Provider Registered Nurse
DX: I63.9 Cerebral infarction, unspecified (principal)
CPT/HCPCS: 70551

== ENCOUNTER 2025-06-20 13:42 | Outpatient (AMB) | payer MEDICARE, SELFPAY ==
--- OUTSIDE RECORDS SUMMARY | 2025-03-21 05:30 | XMS_ITS ---
Author Organization [facility] Address [address] [place] [address] Care Team Providers Care Food Clerk Name Role Phone Kasia Hess Primary Care Provider Unava ilable Julia Cope Unavailable [phone] Encounters Encounter Location Date Provider Diagnosis [address] [address] 03/21/2025 Julia Cope Plan Of Treatment Next Appt Details Provider Name:Julia villasenor, 10/09/2025 10:00:00 AM, [address] [place] [address], [phone], Progress Notes * Lance GIBSONoreDOB: [birth year] (80 yo M)Acc No.[id number]:03/21/2025 Progress Note Patient: Clotilde DELGADO Bhanu Provider: Dania Cope DPM :1945 A ge:80 Y S ex:Male Date:03/21/2025 Address:[address] [place] [address] Pcp:Kasia Hess Subjective: * Chief Complaints: * * Medical History: Objective: * Vitals: Assessment: Plan: * Treatment: * Images: * The named appointment provid er may or may not be the originator of this progress note, and it is not deemed complete until electronically signed by the appointment provider. Sign off status: Pending * Provider: Dania Cope DPM Date: 0 03/21/2025 Generated for Donald Chan/Melania on: 0 06/20/2025 04:07 PM EDT
--- NOTE | 2025-06-20 13:46 | A.OFFVIS_ITS ---
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 He had an episode in 04/2025 where his thought his speech was slurred and he was off balance. He went to bed and speech was back to normal the next morning. He did not go to the hospital. He was doing okay. No further episodes. No seizures. No issues with gait or mobility. No falls. No issues with bladder control. Memory was okay. He was staying active working few hours a day at [employer] and exercising. He was going on a cruise for 7-weeks with his next month. [facility] Medical History (Updated 06/20/25 @ 13:49 by Lashon Sheridan CNP) Multifactorial gait disorder Gait disorder Peripheral neuropathy Arthritis Prostate CA Insomnia Acute arthritis Seizure disorder Thrombosed hemorrhoids Hyperlipidemia History of TIA (transient ischemic attack) Surgical History (Updated 04/27/25 @ 09:53 by Niharika Guerrero CMA) S/P knee replacement H/O eye surgery History of total left knee replacement History of hernia repair Family History Mother History of breast cancer Father History of brain cancer Social History Alcohol intake: current Alcohol type: wine Patient Tobacco Use Status: Current someday Tobacco user Tobacco use type: Cigar Review of Systems Const Denies chills, Denies daytime sleepiness, Reports difficulty sleeping, Denies fatigue, Denies fever(s), Denies frequent falls, Denies headache(s), Denies increased appetite, Denies poor appetite, Denies snoring, Denies weakness, Denies weight gain and Denies weight loss Eyes Denies loss of vision ENT Denies vertigo, Denies dizziness and Denies headache(s) Card Denies chest pain at rest, Denies chest pain with activity, Denies syncope, Denies leg edema and Denies palpitations Resp Denies snoring GI Denies constipation, Denies heartburn, Denies diarrhea and Denies nausea Denies urinary frequency, Denies urinary incontinence and Denies urinary urgency Musc Reports abnormal gait (balance difficulty), Denies numbness and Denies tingling Skin/Breast Denies dry skin and Denies rash Neuro Reports abnormal gait (balance difficulty), Denies vertigo, Denies dizziness, Denies syncope, Denies frequent falls, Denies headache(s), Denies lack of coordination, Denies loss of vision, Denies memory loss, Denies numbness, Denies restless legs, Denies seizure-like activity, Denies tingling, Denies paresthesias, Denies tremor(s) and Denies weakness Psych Denies anxiety, Denies depression, Denies auditory hallucinations, Denies memory loss, Denies visual hallucinations and Denies suicidal ideation Endo Denies fatigue and Denies palpitations Physical Exam Const Other: General Appearance:? normal, in no acute distress. Skin:? no rashes, no significant birthmarks. Heart:? S1, S2 normal, no murmurs. Lungs:? clear anteriorly and posteriorly. Extremities:? no edema. Psych:? alert, oriented, cognitive function intact, cooperative with exam. Neuro Other: Mental Status:?Normal attention, orientation, memory and affect.? Cranial Nerves:?Pupils are equal, round and reactive to light. External occular muscles are intact. Right eye is deviated to the right but he could move it all directions. Visual crowley are full. Face is symmetrical. Facial sensations are normal. Tongue is midline. Palate elevates symmetrically. Shoulder shrugging is normal. Hearing to bedside conversation is decreased. Sensory Exam:?....? Coordination:?No ataxia,?no titubation.? Gait Exam: Within normal limits. Cerebellar Signs:?Tkmjfz-ty-gqic is okay. Extrapyramidal System:?No tremor, rigidity with normal facial expressions.? Pronator Drift:?Not present.? Involuntary Movements:?No tremors seen.? Speech:?Normal.? Results Reviewed Results Reviewed: [address] [address] Magnetic Resonance Report Signed Patient: Bhanu Gibson MR#: [id number] : 1945 Acct:[id number] Age/Sex: 80 / M ADM Date: 06/17/25 Loc: HO.MRI Attending Dr: Lashon Sheridan CNP Ordering Physician: Lashon Sheridan CNP Date of Service: 06/17/25 Procedure(s): MR head/brain wo con Accession Number(s): [id number] cc: Physician,Unknown ; Lashon Sheridan CNP~ Reason for Exam: I63.9 - Cerebral infarction, unspecified CLINICAL HISTORY: I63.9 - Cerebral infarction, unspecified --- Additional Notes or Special Instructions: r o stroke MR Brain without gadolinium Comparison: None provided Findings: No restricted diffusion. No intra-axial mass or hemorrhage. No midline shift. No hydrocephalus. Vascular flow voids are intact. Disproportionate prominence of the ventricles when compared to the subarachnoid sulcal spaces. Mild scattered T2 signal prolongation in the periventricular white matter. Orbital contents are unremarkable. The sinuses and mastoid air cells are clear. No focal bone lesion. IMPRESSION: Disproportionately prominent ventricles. Findings suggest normal pressure hydrocephalus. No acute ischemia. This document has been electronically signed by: Wiley Mccracken MD on 06/18/2025 10:54:55 Dictated By: Wiley Mccracken MD Signed By: <Electronically signed by Wiley Mccracken MD in OV> 06/18/25 1055 -- MRI brain WO at [facility] in 2019: mod ventriculomegaly NCV/EMG LE 03/29/19 THIS IS AN UNREMARKABLE STUDY. Amb EEG at [facility] in 2018: left temp sharps MRI brain w/o cont at [facility] in 2009: mild MVD and mild ventriculomegaly NICS at [facility] in 2009: WNL. Assessment & Plan Assessment & Plan (1) Complex partial seizure disorder: Code(s): G40.209 - Localization-related (focal) (partial) symptomatic epilepsy and epileptic syndromes with complex partial seizures, not intractable, without status epilepticus Category: Medical Plan: Continue levetiracetam 500mg 1 tablet twice a day. (2) Normal pressure hydrocephalus: Code(s): G91.2 - (Idiopathic) normal pressure hydrocephalus Category: Medical Plan: MRI results reviewed. He did not have any clinical symptoms at this time. Memory was stable, and gait and bladder control were okay. Coding Level of Care Code Est Pt Level 4 (33807) Diagnoses Complex partial seizure disorder G40.209 Normal pressure hydrocephalus G91.2
--- OUTSIDE RECORDS SUMMARY | 2025-06-20 16:08 | XMS_ITS | Patient Health Record ---
Author Organization [facility] [place] Address [address] [place] [address] Care Team Providers Care Substitute Bus Driver Name Role Phone Kasia Hess Primary Care Provider Julia Rizzo Unavailable [phone] Allergies No Known Allergies Reason For Referral [...] Problem Acquired hammer toe of right foot (5898628612242 105) Other hammer toe(s) (acquired), right foot (M20.41) Active confirmed Vital Signs Blood pressure diastolic 70 mm Hg 06/12/2025 Height 5 ft 3in in 06/12/2025 Blood pressure systolic 130 mm Hg 06/12/2025 Weight 150 lbs 06/12/2025 BMI 26.57 kg/m2 06/12/2025 Encounters Encounter Location Date Provider Diagnosis [address] [address] 09/13/2024 Julia Perica Tinea unguium B35.1 ; Pain in right toe(s) M79.674 and Pain in left toe(s) M79.[address] [address] 12/20/2024 Julia Perica Tinea unguium B35.1 ; Pain in right toe(s) M79.674 and Pain in left toe(s) M79.[address] [address] 06/12/2025 Julia Perica Tinea unguium B35.1 ; Other hammer toe(s) (acquired), right foot M20.41 ; Pain in right toe(s) M79.674 and Pain in left toe(s) M79.[address] [address] 12/20/2024 Julia Perica [address] [address] 03/16/2025 Julia Perica Assessments Encounter Date Diagnosis [...] Treatment Pending Test Test Name Order Date [id number] Plate 02/25/2016 [id number] Plate 04/07/2016 Next Appt Details Provider Name:Julia villasenor, 10/09/2025 10:00:00 AM, [address] [place], [address], Insurance Providers Payer Name Payer Address Payer Phone Subscriber Number Group Number Insured Name Patient Relationship to Insured Coverage Start Date Coverage End Date [employer] [address] [place] [address] [id number] Bhanu Gibson Self - patient is the insured Medical (General) History Medical History History ICD Code Cholesterol Measles Mumps Chicken pox Back,Hip,and Knee pain Prostate cancer Surgical History Surgery Date(Month/Year) knee surgery hernia knee surgery, left 2021 prostate cancer 2022
--- OUTSIDE RECORDS SUMMARY | 2025-06-20 16:08 | XMS_ITS | Patient Health Record ---
Author Organization [facility] Address [address] [place] [address] Care Team Providers Care Education Program Specialist Name Role Phone Hayley (RETIRED) Ray TREVINO [...] Problem Status W/U Status Risk Notes Problem 143206688 Colon cancer screening (Z12.11) Active confirmed Problem 152778254 longterm (curre nt) use of non-steroidal anti-inflammatories (NSAID) (Z79.1) Active confirmed Problem [id number] Abnormal CT scan , gastrointestinal tract (R93.3) Active confirmed Plan Of Treatment Future Test Test Name Order Date COLONOSCOPY 12/15/2019 UPPER GI ENDOSCOPY 05/27/2022 Insurance Providers Payer Name Payer Address Payer Phone Subscriber Number Group Number Insured Name Patient Relationship to Insured Coverage Start Date Coverage End Date [facility] [address] [place] [address] [phone] [id number] KARINA ELDRIDGE Self - patient is the insured Medical (General) History Medical History History ICD Code arthritis elevated cholesterol Seizure disorder insomnia prostate cancer colonoscopy 02/14/20, normal, no further screening. Surgical History Surgery Date(Month/Year) knee surgery hernia surgery eye surgery age 5 Hospitalization History Reason Date(Month/Year)
== END 2025-06-20 13:58 | disposition home or self-care (01) ==
LOC: HO.HSM 13:42
PROVIDERS: Visit Provider Registered Nurse
DX: G40.209 Localization-related (focal) (partial) symptomatic epilepsy and epileptic syndromes with complex partial seizures, not intractable, without status epilepticus (principal); G91.2 (Idiopathic) normal pressure hydrocephalus
CPT/HCPCS: 99214

== ENCOUNTER → 2025-06-20 13:42 | Outpatient (BNVA) | payer MEDICARE, SELFPAY | PROVIDERS: Visit Provider Registered Nurse | DX: G40.209 Localization-related (focal) (partial) symptomatic epilepsy and epileptic syndromes with complex partial seizures, not intractable, without status epilepticus (principal); G91.2 (Idiopathic) normal pressure hydrocephalus; G62.9 Polyneuropathy, unspecified | CPT/HCPCS: 99212 ==